=== PATIENT | male | born 1930 | race Caucasian/White ===

== ENCOUNTER 2016-08-03 06:44 | Day surgery (SDC) | payer OTHER, BC ==
[~2016-08-03] VITALS: Ht 175.3 cm; Wt 68.0 kg
[~2016-08-03 06:44] MED LIST: AMLODIPINE BESY10 MG PO; CALCITRIOL0.25 MCG PO; CALCITRIOL0.5 MCG PO; CALCIUM ACETAT667 M2 PO; CATAPRES-TTS 11 EACH TD; CEFDINIR300 MG PO; COLACE100 MG PO; CRESTOR20 MG PO; CRESTOR40 MG PO; CYANOCOBALAM1000 MCG PO; ERGOCALCIF50000 UNIT PO; EXTRA STRENGTH500 M1 PO; LEVOFLOXACIN500 MG PO; LEVOFLOXACIN750 MG PO; LO-DOSE ASPIRIN81 M1 PO; NABI650T PO; NEPHRO-VITE,1 TABLET PO; NITROSTAT0.4 MG SL; NORCO 5/3251 TABLET PO; NORVASC10 MG PO; PROTONIX40 MG PO; RENVELA800 MG PO; ROCALTROL0.25 MCG PO; SENNA-TIME S T1 EACH PO; VITAMIN D1000 INTUN PO
[2016-08-03 10:28] LABS: METH RESISTANT S AUREUS PCR NEGATIVE (NEGATIVE)
[2016-08-03 10:29] LABS: PROBE CHECK PASS; SPECIMEN PROCESSING CONTROL PASS
== END 2016-08-03 10:15 | disposition home or self-care (01) ==
LOC: CATH 06:44
PROVIDERS: Surgery
DX: T82.858A Stenosis of other vascular prosthetic devices, implants and grafts, initial encounter (principal); N18.6 End stage renal disease; Z99.2 Dependence on renal dialysis; I25.10 Atherosclerotic heart disease of native coronary artery without angina pectoris; I25.2 Old myocardial infarction; E78.00 Pure hypercholesterolemia, unspecified; I73.9 Peripheral vascular disease, unspecified; Z95.1 Presence of aortocoronary bypass graft; Z88.0 Allergy status to penicillin; Z72.0 Tobacco use
CPT/HCPCS: 87641; C1725; C1769; C1894; J1644; J2250; J3010

== ENCOUNTER 2016-09-02 15:07 | Day surgery (SDC) | payer OTHER, BC ==
[2016-09-02 17:12] LABS: METH RESISTANT S AUREUS PCR NEGATIVE (NEGATIVE)
[2016-09-02 17:34] LABS: PROBE CHECK PASS; SPECIMEN PROCESSING CONTROL PASS
== END 2016-09-02 17:59 | disposition home or self-care (01) ==
LOC: CATH 15:07
PROVIDERS: Surgery
PROC: 057Y3ZZ Dilation of Upper Vein, Percutaneous Approach (ICD-10-PCS; principal; 2016-09-02)
DX: T82.858A Stenosis of other vascular prosthetic devices, implants and grafts, initial encounter (principal); N18.6 End stage renal disease; Z99.2 Dependence on renal dialysis; I25.10 Atherosclerotic heart disease of native coronary artery without angina pectoris; I25.2 Old myocardial infarction; I73.9 Peripheral vascular disease, unspecified; Z95.1 Presence of aortocoronary bypass graft
CPT/HCPCS: 87641; C1725; C1769; C1894; J1200; J1644; J2250; J3010

== ENCOUNTER 2016-11-29 07:32 | Day surgery (SDC) | payer OTHER, BC ==
[~2016-11-29] VITALS: Ht 175.3 cm; Wt 67.0 kg
== END 2016-11-29 10:06 | disposition home or self-care (01) ==
LOC: CATH 07:32
PROC: 057Y3DZ Dilation of Upper Vein with Intraluminal Device, Percutaneous Approach (ICD-10-PCS; principal; 2016-11-29)
DX: T82.858A Stenosis of other vascular prosthetic devices, implants and grafts, initial encounter (principal); I70.212 Atherosclerosis of native arteries of extremities with intermittent claudication, left leg; N18.6 End stage renal disease; I25.10 Atherosclerotic heart disease of native coronary artery without angina pectoris; Z99.2 Dependence on renal dialysis; F17.210 Nicotine dependence, cigarettes, uncomplicated; Z95.1 Presence of aortocoronary bypass graft
CPT/HCPCS: C1725; C1769; C1874; C1894; J1644; J2250; J3010

== ENCOUNTER 2017-05-09 11:24 | Inpatient (IN) | payer OTHER, BC ==
[~2017-05-09] VITALS: Ht 175.3 cm; Wt 61.2 kg
[2017-05-09 12:43] LABS: BASOPHIL (%) 0.3 % (0-1); EOSINOPHIL (%) 0 % (0-5); HEMATOCRIT 26.3 % (38.0-50.0); HEMOGLOBIN 8.4 G/DL (12.5-16.6); IMMATURE GRANULOCYTE (%) 0.4 % (0.0-0.7); LYMPHOCYTE (%) 12.7 % (15-42); MCH 31.7 PG (29.0-34.0); MCHC 31.9 G/DL (30.0-36.0); MCV 99.2 FL (86-99); MONOCYTE (%) 10.1 % (3-12); MONOCYTE COUNT 0.8 K/uL (0-0.8); NEUTROPHIL (%) 76.5 % (45-76); NEUTROPHIL COUNT 5.8 K/uL (1.8-6.4); PLATELET COUNT 126 K/uL (156-360); RBC DIS.WIDTH-CV 17.3 % (11.8-14.6); RBC DIS.WIDTH-SD 63.1 % (39-53); RED BLOOD COUNT 2.65 M/uL (4.00-5.50); WHITE BLOOD COUNT 7.6 K/uL (4.1-10.2)
[2017-05-09 12:51] LABS: INTER. NORMALIZED RATIO 1.1
[2017-05-09 12:53] LABS: PTT 28.9 SEC (25-37)
[2017-05-09 12:58] LABS: CHLORIDE 97 mEq/L (99-109); POTASSIUM 4.6 mEq/L (3.7-5.4); SODIUM 141 mEq/L (136-147)
[2017-05-09 13:00] LABS: GLUCOSE 81 mg/dL (70-99)
[2017-05-09 13:04] LABS: CREATININE 8.3 mg/dL (0.6-1.3); GFR ESTIMATE (CALCULATED) 7 mL/min/ (58.99-99999)
[2017-05-09 13:05] LABS: UREA NITROGEN (BUN) 38 mg/dL (9-23)
[2017-05-09 13:10] LABS: TROP-I INTERPRETATION NEGATIVE; TROPONIN-I 0.24 ng/mL (0.0-0.30)
[2017-05-09 14:48] VITALS: BP 126/60
[2017-05-09 16:10] VITALS: BP 112/56
[2017-05-09 18:33] LABS: HEMATOCRIT 28.7 % (38.0-50.0)
[2017-05-09 19:00] VITALS: BP 115/55
[2017-05-09 19:48] LABS: HEMATOCRIT 27.1 % (38.0-50.0); HEMOGLOBIN 8.7 G/DL (12.5-16.6); MCHC 32.1 G/DL (30.0-36.0); MCV 99.6 FL (86-99); PLATELET COUNT 133 K/uL (156-360); RBC DIS.WIDTH-CV 17.6 % (11.8-14.6); RBC DIS.WIDTH-SD 64.1 % (39-53); RED BLOOD COUNT 2.72 M/uL (4.00-5.50); WHITE BLOOD COUNT 8.8 K/uL (4.1-10.2)
[2017-05-09 20:10] LABS: TROP-I INTERPRETATION NEGATIVE
[2017-05-09 22:30] VITALS: BP 112/58
[2017-05-10] VITALS (10 sets, daily range): BP systolic 109–129; BP diastolic 55–62
[2017-05-10 05:11] LABS: BASOPHIL (%) 0.2 % (0-1); EOSINOPHIL (%) 0 % (0-5); HEMATOCRIT 25.9 % (38.0-50.0); HEMOGLOBIN 8.5 G/DL (12.5-16.6); IMMATURE GRANULOCYTE (%) 0.8 % (0.0-0.7); LYMPHOCYTE (%) 8.6 % (15-42); LYMPHOCYTE COUNT 0.7 K/uL (1.0-2.8); MCH 31.7 PG (29.0-34.0); MCHC 32.8 G/DL (30.0-36.0); MCV 96.6 FL (86-99); MONOCYTE (%) 9.3 % (3-12); MONOCYTE COUNT 0.8 K/uL (0-0.8); NEUTROPHIL (%) 81.1 % (45-76); PLATELET COUNT 117 K/uL (156-360); RBC DIS.WIDTH-CV 17.6 % (11.8-14.6); RBC DIS.WIDTH-SD 61.7 % (39-53); RED BLOOD COUNT 2.68 M/uL (4.00-5.50); WHITE BLOOD COUNT 8.6 K/uL (4.1-10.2)
[2017-05-10 05:29] LABS: ALKALINE PHOSPHATASE 60 IU/L (3-129); ALT (GPT) 12 IU/L (3-49); AST (GOT) 23 IU/L (2-34); CHLORIDE 100 MEQ/L (99-109); CREATININE 8.8 MG/DL (0.6-1.3); GFR ESTIMATE (CALCULATED) 6 mL/min/ (58.99-99999); GLUCOSE 101 mg/dL (70-99); SODIUM 141 MEQ/L (136-147); TOTAL BILIRUBIN 0.9 MG/DL (0.0-1.0); TOTAL PROTEIN 5.2 G/DL (6.4-8.3); UREA NITROGEN (BUN) 42 mg/dL (9-23)
[2017-05-10 05:34] LABS: POTASSIUM 5.7 MEQ/L (3.7-5.4)
[2017-05-10 07:01] LABS: TROP-I INTERPRETATION POSITIVE; TROPONIN-I 5.54 ng/mL (0.0-0.30)
[2017-05-10 14:49] LABS: TROP-I INTERPRETATION POSITIVE; TROPONIN-I 10.31 ng/mL (0.0-0.30)
[2017-05-10 14:58] LABS: HEPATITIS B SURFACE ANTIGEN Nonreactive
[2017-05-10 16:06] LABS: HEPATITIS B SURFACE ANTIBODY EQUIVOCAL
[2017-05-10 17:07] LABS: HEMATOCRIT 32.1 % (38.0-50.0)
[2017-05-10 17:08] LABS: HEMOGLOBIN 10.7 G/DL (12.5-16.6)
[2017-05-11 02:25] LABS: C DIFF TOXIN NEGATIVE (NEGATIVE)
[2017-05-11 04:00] VITALS: BP 128/69
[2017-05-11 05:06] LABS: BASOPHIL (%) 0.2 % (0-1); EOSINOPHIL (%) 0 % (0-5); HEMATOCRIT 31.7 % (38.0-50.0); HEMOGLOBIN 10.6 G/DL (12.5-16.6); IMMATURE GRANULOCYTE (%) 0.1 % (0.0-0.7); LYMPHOCYTE (%) 7.8 % (15-42); LYMPHOCYTE COUNT 0.7 K/uL (1.0-2.8); MCH 31.3 PG (29.0-34.0); MCHC 33.4 G/DL (30.0-36.0); MCV 93.5 FL (86-99); MONOCYTE COUNT 0.8 K/uL (0-0.8); NEUTROPHIL (%) 82.9 % (45-76); NEUTROPHIL COUNT 7.7 K/uL (1.8-6.4); PLATELET COUNT 112 K/uL (156-360); RBC DIS.WIDTH-CV 17.2 % (11.8-14.6); WHITE BLOOD COUNT 9.3 K/uL (4.1-10.2)
[2017-05-11 05:13] LABS: RED BLOOD COUNT 3.39 M/uL (4.00-5.50)
[2017-05-11 05:25] LABS: CHLORIDE 97 mEq/L (99-109); POTASSIUM 4.8 mEq/L (3.7-5.4); SODIUM 140 mEq/L (136-147)
[2017-05-11 05:26] LABS: GLUCOSE 91 mg/dL (70-99)
[2017-05-11 05:27] LABS: TROP-I INTERPRETATION POSITIVE
[2017-05-11 05:30] LABS: GFR ESTIMATE (CALCULATED) 9 mL/min/ (58.99-99999); TROPONIN-I 9.04 ng/mL (0.0-0.30)
[2017-05-11 05:31] LABS: CREATININE 6.1 mg/dL (0.6-1.3); UREA NITROGEN (BUN) 25 mg/dL (9-23)
[2017-05-11 07:09] VITALS: BP 122/55
[2017-05-11 11:37] VITALS: BP 106/59
[2017-05-11 15:13] VITALS: BP 97/55
[2017-05-11 19:34] VITALS: BP 100/55
[2017-05-12 00:15] VITALS: BP 97/50
[2017-05-12 04:55] VITALS: BP 108/57
[2017-05-12 05:10] LABS: BASOPHIL (%) 0.2 % (0-1); EOSINOPHIL (%) 0 % (0-5); HEMATOCRIT 28.1 % (38.0-50.0); HEMOGLOBIN 9.3 G/DL (12.5-16.6); IMMATURE GRANULOCYTE (%) 0.4 % (0.0-0.7); LYMPHOCYTE (%) 6.4 % (15-42); LYMPHOCYTE COUNT 0.3 K/uL (1.0-2.8); MCH 31.3 PG (29.0-34.0); MCHC 33.1 G/DL (30.0-36.0); MCV 94.6 FL (86-99); MONOCYTE (%) 4.1 % (3-12); MONOCYTE COUNT 0.2 K/uL (0-0.8); NEUTROPHIL (%) 88.9 % (45-76); NEUTROPHIL COUNT 4.3 K/uL (1.8-6.4); PLATELET COUNT 100 K/uL (156-360); RBC DIS.WIDTH-CV 16.2 % (11.8-14.6); RBC DIS.WIDTH-SD 56.4 % (39-53); RED BLOOD COUNT 2.97 M/uL (4.00-5.50); WHITE BLOOD COUNT 4.9 K/uL (4.1-10.2)
[2017-05-12 05:43] LABS: CHLORIDE 95 MEQ/L (99-109); GFR ESTIMATE (CALCULATED) 7 mL/min/ (58.99-99999); POTASSIUM 4.6 MEQ/L (3.7-5.4); SODIUM 135 MEQ/L (136-147)
[2017-05-12 05:44] LABS: CREATININE 7.9 MG/DL (0.6-1.3); GLUCOSE 159 mg/dL (70-99); UREA NITROGEN (BUN) 38 mg/dL (9-23)
[2017-05-12 07:06] VITALS: BP 91/50
[2017-05-12 12:31] VITALS: BP 102/42
[2017-05-12 15:18] VITALS: BP 95/53
[2017-05-12 21:00] VITALS: BP 97/51
[2017-05-13] VITALS (8 sets, daily range): BP systolic 100–146; BP diastolic 51–77
[2017-05-13 06:06] LABS: BASOPHIL (%) 0 % (0-1); EOSINOPHIL (%) 0 % (0-5); HEMOGLOBIN 9.7 G/DL (12.5-16.6); IMMATURE GRANULOCYTE (%) 0.6 % (0.0-0.7); LYMPHOCYTE COUNT 0.4 K/uL (1.0-2.8); MCHC 32.3 G/DL (30.0-36.0); MCV 95.8 FL (86-99); MONOCYTE (%) 3.4 % (3-12); MONOCYTE COUNT 0.3 K/uL (0-0.8); NEUTROPHIL COUNT 8.2 K/uL (1.8-6.4); PLATELET COUNT 130 K/uL (156-360); RBC DIS.WIDTH-CV 15.8 % (11.8-14.6); RBC DIS.WIDTH-SD 55.9 % (39-53); RED BLOOD COUNT 3.13 M/uL (4.00-5.50); WHITE BLOOD COUNT 8.9 K/uL (4.1-10.2)
[2017-05-14 04:45] VITALS: BP 122/63
[2017-05-14 05:45] LABS: BASOPHIL (%) 0 % (0-1); EOSINOPHIL (%) 0 % (0-5); HEMATOCRIT 32.1 % (38.0-50.0); HEMOGLOBIN 10.2 G/DL (12.5-16.6); IMMATURE GRANULOCYTE (%) 0.8 % (0.0-0.7); LYMPHOCYTE (%) 3.5 % (15-42); LYMPHOCYTE COUNT 0.4 K/uL (1.0-2.8); MCH 30.1 PG (29.0-34.0); MCHC 31.8 G/DL (30.0-36.0); MCV 94.7 FL (86-99); MONOCYTE (%) 4.6 % (3-12); MONOCYTE COUNT 0.5 K/uL (0-0.8); NEUTROPHIL (%) 91.1 % (45-76); NEUTROPHIL COUNT 10.2 K/uL (1.8-6.4); RBC DIS.WIDTH-CV 15.5 % (11.8-14.6); RED BLOOD COUNT 3.39 M/uL (4.00-5.50); WHITE BLOOD COUNT 11.2 K/uL (4.1-10.2)
[2017-05-14 05:54] LABS: PLATELET COUNT 184 K/uL (156-360)
[2017-05-14 06:18] LABS: ALBUMIN 3.3 G/DL (3.2-4.8); CHLORIDE 92 MEQ/L (99-109); CREATININE 7.8 MG/DL (0.6-1.3); GFR ESTIMATE (CALCULATED) 7 mL/min/ (58.99-99999); GLUCOSE 169 mg/dL (70-99); PHOSPHORUS 5.7 mg/dL (2.5-4.9); POTASSIUM 4.5 MEQ/L (3.7-5.4); SODIUM 140 MEQ/L (136-147); UREA NITROGEN (BUN) 52 mg/dL (9-23)
[2017-05-14 06:39] LABS: TROP-I INTERPRETATION POSITIVE; TROPONIN-I 3.02 ng/mL (0.0-0.30)
[2017-05-14 11:56] VITALS: BP 100/51
[2017-05-14 12:47] LABS: TROP-I INTERPRETATION POSITIVE; TROPONIN-I 3.04 ng/mL (0.0-0.30)
[2017-05-14 16:00] VITALS: BP 108/53
[2017-05-14 17:24] LABS: TROP-I INTERPRETATION POSITIVE; TROPONIN-I 2.69 ng/mL (0.0-0.30)
[2017-05-14 19:15] VITALS: BP 108/51
[2017-05-15] VITALS (7 sets, daily range): BP systolic 103–142; BP diastolic 6–63
[2017-05-16 02:46] VITALS: BP 110/60
[2017-05-16 06:19] VITALS: BP 112/70
[2017-05-16 07:14] VITALS: BP 144/70
[2017-05-16 09:20] LABS: BASOPHIL (%) 0.1 % (0-1); EOSINOPHIL (%) 0 % (0-5); HEMATOCRIT 34.5 % (38.0-50.0); HEMOGLOBIN 11.5 G/DL (12.5-16.6); LYMPHOCYTE (%) 3.1 % (15-42); LYMPHOCYTE COUNT 0.4 K/uL (1.0-2.8); MCH 31.2 PG (29.0-34.0); MCHC 33.3 G/DL (30.0-36.0); MCV 93.5 FL (86-99); MONOCYTE (%) 5.5 % (3-12); MONOCYTE COUNT 0.8 K/uL (0-0.8); NEUTROPHIL (%) 89.3 % (45-76); NEUTROPHIL COUNT 12.3 K/uL (1.8-6.4); NRBC (%) 0.9 /100 WBC (0-0); PLATELET COUNT 213 K/uL (156-360); RBC DIS.WIDTH-CV 15.3 % (11.8-14.6); RBC DIS.WIDTH-SD 51.8 % (39-53); RED BLOOD COUNT 3.69 M/uL (4.00-5.50); WHITE BLOOD COUNT 13.8 K/uL (4.1-10.2)
[2017-05-16 09:48] LABS: ALBUMIN 3.6 G/DL (3.2-4.8); CHLORIDE 88 MEQ/L (99-109); CREATININE 8.2 MG/DL (0.6-1.3); GFR ESTIMATE (CALCULATED) 7 mL/min/ (58.99-99999); GLUCOSE 147 mg/dL (70-99); SODIUM 135 MEQ/L (136-147)
[2017-05-16 09:50] LABS: PHOSPHORUS 8.6 mg/dL (2.5-4.9); UREA NITROGEN (BUN) 80 mg/dL (9-23)
[2017-05-16 16:53] VITALS: BP 147/67
[2017-05-16 19:00] VITALS: BP 108/56
[2017-05-17] VITALS (7 sets, daily range): BP systolic 102–149; BP diastolic 45–72
[2017-05-18 04:00] VITALS: BP 118/51
[2017-05-18 08:33] LABS: ALBUMIN 3.2 G/DL (3.2-4.8); BASOPHIL (%) 0.2 % (0-1); CHLORIDE 90 MEQ/L (99-109); CREATININE 7.8 MG/DL (0.6-1.3); EOSINOPHIL (%) 0 % (0-5); GFR ESTIMATE (CALCULATED) 7 mL/min/ (58.99-99999); GLUCOSE 127 mg/dL (70-99); HEMATOCRIT 35.8 % (38.0-50.0); HEMOGLOBIN 12.2 G/DL (12.5-16.6); IMMATURE GRANULOCYTE (%) 3.4 % (0.0-0.7); LYMPHOCYTE (%) 4.5 % (15-42); LYMPHOCYTE COUNT 0.6 K/uL (1.0-2.8); MCH 31.5 PG (29.0-34.0); MCHC 34.1 G/DL (30.0-36.0); MCV 92.5 FL (86-99); MONOCYTE (%) 4.3 % (3-12); MONOCYTE COUNT 0.6 K/uL (0-0.8); NEUTROPHIL (%) 87.6 % (45-76); NEUTROPHIL COUNT 12.1 K/uL (1.8-6.4); NRBC (%) 0.5 /100 WBC (0-0); PHOSPHORUS 8.5 mg/dL (2.5-4.9); PLATELET COUNT 221 K/uL (156-360); POTASSIUM 4.7 MEQ/L (3.7-5.4); RBC DIS.WIDTH-CV 15.9 % (11.8-14.6); RBC DIS.WIDTH-SD 50.5 % (39-53); RED BLOOD COUNT 3.87 M/uL (4.00-5.50); SODIUM 134 MEQ/L (136-147); UREA NITROGEN (BUN) 87 mg/dL (9-23); WHITE BLOOD COUNT 13.9 K/uL (4.1-10.2)
[2017-05-18 12:37] VITALS: BP 128/96
[2017-05-18 16:57] VITALS: BP 90/52
[2017-05-18 19:30] VITALS: BP 85/45
[2017-05-19 00:05] VITALS: BP 116/58
[2017-05-19 02:54] LABS: STOOL OCCULT BLD 1ST SPECIMEN POSITIVE
[2017-05-19 04:30] VITALS: BP 106/59
[2017-05-19] MEDS ORDERED: IMDUR30 MG PO (06:44)
[2017-05-19] MEDS ORDERED: LOPRESSOR25 MG PO (06:44)
[2017-05-19] MEDS ORDERED: PANTOPRAZOLE SO40 MG PO (06:45)
[2017-05-19] MEDS ORDERED: CEFTIN500 MG PO (06:47)
[2017-05-19] MEDS ORDERED: LIDODERM 5% P1 PATCH TD (06:48)
[2017-05-19] MEDS ORDERED: ZOFRAN ODT4 MG PO (08:05)
[2017-05-19 08:49] VITALS: BP 131/60
[2017-05-19 12:51] VITALS: BP 104/51
== END 2017-05-19 13:14 | DRG 377 ==
LOC: EME 11:24 → 4EAST 13:09 → EDOF 13:09 → 4EAST 13:09 → ENRESERV 13:13 → 4EAST 14:21 → CANRESERV 05-10 12:26 → ENRESERV 05-10 12:26 → ENPENDDIS 05-19 → 4EAST 05-19 13:14
PROVIDERS: Emergency Medicine; Family Medicine; Internal Medicine Nephrology
PROC: 30233N1 Transfusion of Nonautologous Red Blood Cells into Peripheral Vein, Percutaneous Approach (ICD-10-PCS; principal; 2017-05-10)
PROC: 5A1D70Z Performance of Urinary Filtration, Intermittent, Less than 6 Hours Per Day (ICD-10-PCS; 2017-05-10)
DX: K27.4 Chronic or unspecified peptic ulcer, site unspecified, with hemorrhage (principal); I21.A1 Myocardial infarction type 2; J18.1 Lobar pneumonia, unspecified organism; D62 Acute posthemorrhagic anemia; E87.5 Hyperkalemia; J44.0 Chronic obstructive pulmonary disease with (acute) lower respiratory infection; I13.2 Hypertensive heart and chronic kidney disease with heart failure and with stage 5 chronic kidney disease, or end stage renal disease; N18.6 End stage renal disease; I50.9 Heart failure, unspecified; N25.81 Secondary hyperparathyroidism of renal origin; E55.9 Vitamin D deficiency, unspecified; M25.562 Pain in left knee; I25.10 Atherosclerotic heart disease of native coronary artery without angina pectoris; E78.5 Hyperlipidemia, unspecified; I70.1 Atherosclerosis of renal artery; I73.9 Peripheral vascular disease, unspecified; K59.00 Constipation, unspecified; F17.210 Nicotine dependence, cigarettes, uncomplicated; Z99.2 Dependence on renal dialysis; I25.2 Old myocardial infarction; Z95.1 Presence of aortocoronary bypass graft; Z95.0 Presence of cardiac pacemaker; Z79.82 Long term (current) use of aspirin; Z85.828 Personal history of other malignant neoplasm of skin
CPT/HCPCS: 71045; 71046; 71250; 74176; 76705; 80048; 80053; 80069; 82272; 82948; 84484; 85014; 85018; 85025; 85027; 85610; 85730; 86706; 86850; 86860; 86870; 86880; 86900; 86901; 86905; 86920; 87086; 87340; 87493; 87502; 93005; 93306; 94010; 94640; 94640 76; 94799; 97530 GP; 99202; 99281; 99285; A6214; J0456; J0696; J0881; J1270; J1644; J1756; J2405; J2765; J2930; P9016

== ENCOUNTER 2017-06-24 15:03 | Day surgery (SDC) | payer OTHER, BC ==
[~2017-06-24 15:03] MED LIST changes: +CEFTIN500 MG PO; +IMDUR30 MG PO; +LIDODERM 5% P1 PATCH TD; +LOPRESSOR25 MG PO; +PANTOPRAZOLE SO40 MG PO; +ZOFRAN ODT4 MG PO
== END 2017-06-24 17:08 | disposition home or self-care (01) ==
LOC: CATH 15:03
DX: T82.868A Thrombosis due to vascular prosthetic devices, implants and grafts, initial encounter (principal); I12.0 Hypertensive chronic kidney disease with stage 5 chronic kidney disease or end stage renal disease; N18.6 End stage renal disease; Z99.2 Dependence on renal dialysis; E78.5 Hyperlipidemia, unspecified
CPT/HCPCS: 87641; C1725; C1757; C1769; C1874; C1894; C2628; J0690; J1200; J1644; J2250; J3010; S0020